=== PATIENT | female | born 1975 | race Caucasian/White ===

== ENCOUNTER → 2019-02-24 10:07 | Outpatient (POV) | payer BC, SELFPAY | PROVIDERS: Visit Provider Dermatology | DX: Z00.00 Encounter for general adult medical examination without abnormal findings (principal) ==

== ENCOUNTER 2020-04-07 14:30 | Outpatient (RCR) | payer BC, SELFPAY | END 2020-04-07 14:35 | disposition home or self-care (01) | LOC: PT 14:30 | PROVIDERS: PCP Physician Assistant; Visit Provider Orthopaedic Surgery | DX: M54.5 Low back pain (principal) | CPT/HCPCS: 20561; 97010; 97014; 97035; 97110; 97140; 97163; G0283 ==

== ENCOUNTER → 2020-10-26 10:25 | Outpatient (CLI) | payer BC, SELFPAY ==
--- NOTE | 2020-10-26 10:30 | XR_ITS ---
PROCEDURE: XR THORACIC SPINE 3V Referring Doctor: Katy Oliver Patient Age:45Y CLINICAL INDICATION: Thoracic pain Chronic thoracic back pain COMPARISON: CT ABDPELW/O CT ABD PELVIS W/O CONTRAST from 08/20/2015 CR CXR CHEST(2 VIEWS-NOT PORTABLE) from 03/24/2017 FINDINGS: . Thoracic spine3 view: AP, lateral, and swimmer's view Mild Degenerative changes of the T-spine and lower cervical spine with no acute findings... No compression fractures. Of. No destructive or expansile lesions. The pedicles are intact. There is slight disc space narrowing and marginal osteophyte formation at mid T-spine most evident, most notable at T6/7 and T7/8 less; evident T8-9 and T 5/6 but this appearance is unchanged however since 2017 chest film I would note of a very gradual mild levocurvature at the spine which becomes slightly more evident at the upper most lumbar spine. The posterior ribs appear intact. Unremarkable. I would also note there are degenerative changes at the lower C-spine with some anterior marginal osteophyte formation and likely scant cervical spondylosis C5/6-and C6/7. Disc spaces are fairly well maintained however at these levels IMPRESSION: No acute findings at thoracic spine. No appreciable change since 2017 CXR No lesions. No compression fractures Mild degenerative changes at the thoracic spine as of above in text Dictated by: Eric Gilmore MD 10/26/2020 14:08 Eric Gilmore MD in [place] 10/26/2020 14:08
--- NOTE | 2020-10-26 10:30 | XR_ITS ---
PROCEDURE: XR CHEST 2V Referring Doctor: Benito Mcculloch Patient Age:45Y CLINICAL HISTORY: Pain with inspiration 1 week COMPARISON: CR CXR CHEST(2 VIEWS-NOT PORTABLE) from 03/24/2017 CR XR CHEST 2V from 09/25/2019 FINDINGS: PA and lateral upright CXR performed today The cardiomediastinal silhouette and pulmonary vascularity are within normal limits. The lungs are well expanded and clear without infiltrates, suspicious nodules, or pleural effusions. No pneumothorax. Chest wall unremarkable. T-spine intact with stable mild degenerative changes No acute bony abnormalities. IMPRESSION: Stable chest with nothing acute. Dictated by: Eric Gilmore MD 10/26/2020 13:57 Eric Gilmore MD in [place] 10/26/2020 13:57
== END ==
LOC: RAD 10:27
PROVIDERS: PCP Physician Assistant; Visit Provider Physician Assistant
DX: R07.9 Chest pain, unspecified (principal); R07.1 Chest pain on breathing; M54.6 Pain in thoracic spine
CPT/HCPCS: 71046; 72072

== ENCOUNTER 2021-07-03 10:50 | Emergency (ER) | payer BC, SELFPAY ==
--- NOTE | 2021-07-03 10:55 | XR_ITS ---
PROCEDURE: XR CHEST 2V CLINICAL HISTORY: covid positive cough COMPARISON: CR CXR CHEST(2 VIEWS-NOT PORTABLE) from 03/24/2017 CR XR CHEST 2V from 09/25/2019 CR XR CHEST 2V from 10/26/2020 FINDINGS: The cardiomediastinal silhouette and pulmonary vascularity are within normal limits. The lungs are clear without infiltrates, suspicious nodules, or pleural effusions. There are degenerative changes in the thoracic spine with mild kyphosis IMPRESSION: No acute findings. Dictated by: Jewel Paredes MD 07/03/2021 11:55 Jewel Paredes MD in [place] 07/03/2021 11:55
[2021-07-03 11:40] VITALS: BP 134/87; PULSE 89; RESP 18; TEMP 37.1; O2SAT 98; BMI 31.1
--- NOTE | 2021-07-03 12:10 | HMH.EDUTC ---
[facility] [place] Disposition Clinical Impression: COVID-19, Bronchitis Disposition: Home, Self-Care Condition on Discharge: Good Instructions: DI for COVID-19 (Suspected or Confirmed ), Preventing the Spread of Coronavirus Discharge Instructions Additional Instructions: Drink plenty of fluids. Take tylenol or ibuprofen for pain or fever. Take the medications as directed. Follow up with your regular doctor. GO TO THE ER FOR ANY WORSENING SYMPTOMS The cough medication (promethazine dm) will make you drowsy, so don't drive or operate heavy machinery after taking it. Prescriptions: Albuterol Sulfate [Albuterol Sulfate Hfa] 2 puffs IH Q6HP PRN 30 Days #1 each PRN Reason: Shortness Of Breath Transmission Status: Received by [id number] Promethazine/Dextromethorphan [Promethazine-Dm Syrup] 5 ml PO Q6HP PRN #240 ml PRN Reason: Cough Transmission Status: Received by [id number] methylPREDNISolone [Medrol] 4 mg PO DIRECTED 6 Days #21 packet Transmission Status: Received by [id number] Referrals: Yaya Gilbert MD [Primary Care Provider] - Time of Disposition: 12:24 Medical Decision Making - Medical Records Medical records reviewed: No: I reviewed the patient's medical records. - Bernardo Inquiry Pt receiving controlled substance: No Vital Signs: 07/03/21 11:40 07/03/21 12:29 Temperature 98.7 F 98.7 F Temperature Source Oral Pulse Rate 89 Pulse Rate [Left Brachial] 89 Respiratory Rate 18 18 Blood Pressure 134/87 Blood Pressure [Left Arm] 134/87 Blood Pressure Mean [Left Arm] 102 Blood Pressure Source [Left Arm] Automatic Cuff Blood Pressure Position [Left Arm] Sitting 02 Sat by Pulse Oximetry 98 Oxygen Delivery Method Room Air - Radiology Data #1 Image(s): Chest Image Reviewed: Yes I reviewed the patient's radiology image, Yes I have reviewed radiologist's interpretation Preliminary Findings: Normal/NAD, No Infiltrates Seen PROCEDURE: XR CHEST 2V CLINICAL HISTORY: covid positive cough COMPARISON: CR CXR CHEST(2 VIEWS-NOT PORTABLE) from 03/24/2017 CR XR CHEST 2V from 09/25/2019 CR XR CHEST 2V from 10/26/2020 FINDINGS: The cardiomediastinal silhouette and pulmonary vascularity are within normal limits. The lungs are clear without infiltrates, suspicious nodules, or pleural effusions. There are degenerative changes in the thoracic spine with mild kyphosis IMPRESSION: No acute findings. Dictated by: Jewel Paredes MD 07/03/2021 11:55 Jewel Paredes MD in [place] 07/03/2021 11:55 [facility] [place] HPI - General Stated complaint: cough, weakness, body aches, loss of taste, fever Time Seen by Provider: 07/03/21 12:10 Mode of Arrival: Ambulatory Source of Information: Patient Limitations: No Limitations Description of Symptoms (Recalled from Triage Doc. by RN): PATIENT IS COVID POSITIVE; C/O COUGH, SOA AND FEVER. WANTS TO BE CHECKED FOR PNEUMONIA HEENT Symptoms (Recalled from RN notes): No Resp Symptoms (Recalled from RN notes): Yes Skin Symptoms (Recalled from RN notes): No MS Symptoms (Recalled from RN notes): No Functional Status (Recalled from RN notes): WNL - History of Present Illness Provider Complaint: She began feeling bad a little over 1 week ago. She tested positive for covid-19 (test done by her work[employer]) last Saturday (06/26). Since then she has ran a fever off and on up to 101. She has been coughing. She is here to be checked for pneumonia from where she has continued to cough and run the fever. She also had pleuritic type chest and upper back pain. She denies shortness of breath. - Related Data Home Medications Medication Instructions Recorded Confirmed omeprazole 40 mg capsule,delayed 40 mg PO QDAY 10/16/17 07/03/21 release Venlafaxine HCl [Effexor XR 75mg 75 mg PO DAILY 03/29/19 07/03/21 capsule] Previous Rx's Medication Instructions Recorded Albuterol Sulfate [Albuterol 2 puffs IH Q6HP PRN 30 Da
[2021-07-03 12:29] VITALS: BP 134/87; PULSE 89; RESP 18; TEMP 37.1; O2SAT 98
== END 2021-07-03 12:35 | disposition home or self-care (01) ==
PROVIDERS: Emergency Provider Nurse Practitioner Family; PCP Emergency Medicine
DX: U07.1 COVID-19 (principal); J20.9 Acute bronchitis, unspecified; K21.9 Gastro-esophageal reflux disease without esophagitis
CPT/HCPCS: 71046; 99202; G0463

== ENCOUNTER 2021-07-06 09:57 | Outpatient (CLI) | payer BC, SELFPAY ==
[2021-07-06] VITALS (9 sets, daily range): BP systolic 112–135; BP diastolic 67–84; PULSE 65–79; RESP 16–20; TEMP 36.7–36.9; O2SAT 94–98; BMI 32.0
== END 2021-07-06 12:25 | disposition home or self-care (01) ==
LOC: INF 09:58
PROVIDERS: PCP Emergency Medicine; Visit Provider Emergency Medicine
DX: U07.1 COVID-19 (principal); Z23 Encounter for immunization
CPT/HCPCS: 96365

== ENCOUNTER → 2021-10-19 12:17 | Outpatient (CLI) | payer BC, SELFPAY | PROVIDERS: Visit Provider Nurse Practitioner | DX: Z20.822 Contact with and (suspected) exposure to COVID-19 (principal) | CPT/HCPCS: C9803; U0003; U0005 ==

== ENCOUNTER 2021-10-21 10:47 | Emergency (ER) | payer BC, SELFPAY ==
[2021-10-21 12:06] VITALS: BP 148/78; PULSE 101; RESP 18; TEMP 37; O2SAT 98; BMI 32.0
--- NOTE | 2021-10-21 12:13 | HMH.EDUTC ---
[facility] [place] Clinical Impression: Close exposure to COVID-19 virus, Upper respiratory infection, viral Disposition: Home, Self-Care Condition on Discharge: Good Instructions: DI for COVID-19 (Suspected or Confirmed ) Additional Instructions: covid swab was sent to lab, call tomorrow for results. self isolate until test results are known to be negative No sign of a bacterial infection. Likely viral. Viruses can take 7-14 days to run their course. Nasal saline and bulb syringe or nose Amy to remove nasal drainage to help with nasal congestion. Hard to eat, drink, sleep with nasal congestion so important to keep this cleaned out. Monitor temp. Tylenol or Motrin as needed for pain or fever Encourage fluids, water, Gatorade, Powerade, Pedialyte if /toddler/child Warm salt water gargles Warm fluids Sore throat lozenges Sleep elevated Humidifier/vaporizer Follow-up immediately for new or worsening symptoms or no noticeable improvement over the next 48-72 hours. Prescriptions: predniSONE [Prednisone 20mg Tab] 20 mg PO BID #10 tab Transmission Status: Pending to [id number] Referrals: Katy Oliver PA [Primary Care Provider] - Time of Disposition: 12:20 Medical Decision Making - Bernardo Inquiry Pt receiving controlled substance: No Vital Signs: 10/21/21 12:06 Temperature 98.6 F Temperature Source Oral Pulse Rate [Left] 101 H Respiratory Rate 18 Blood Pressure [Right Arm] 148/78 H Blood Pressure Mean [Right Arm] 101 02 Sat by Pulse Oximetry 98 Orders (Tests/Meds): ORDERS Category Date Time Status Covid-19 Nasal PCR ([facility]) Routine Lab 10/21/21 12:06 Ordered [facility] [place] HPI - General Chief complaint: [facility]gent [facility] Stated complaint: covid test, symptoms Time Seen by Provider: 10/21/21 12:13 Mode of Arrival: Ambulatory Source of Information: Patient Limitations: No Limitations Description of Symptoms (Recalled from Triage Doc. by RN): pt c/o a cough, congestion, sore throat and lower back pain. daughter and are positive for covid. HEENT Symptoms (Recalled from RN notes): Yes (congestion and sore throat) Resp Symptoms (Recalled from RN notes): Yes (cough) Skin Symptoms (Recalled from RN notes): No MS Symptoms (Recalled from RN notes): Yes (lower back pain) Functional Status (Recalled from RN notes): wnl - History of Present Illness Provider Complaint: 46 yr old female c/o a cough, congestion, sore throat and lower back pain. daughter and are positive for covid. - Related Data Home Medications Medication Instructions Recorded Confirmed omeprazole 40 mg capsule,delayed 40 mg PO QDAY 10/16/17 07/03/21 release Venlafaxine HCl [Effexor XR 75mg 75 mg PO DAILY 03/29/19 07/03/21 capsule] Previous Rx's Medication Instructions Recorded Albuterol Sulfate [Albuterol 2 puffs IH Q6HP PRN 30 Days #1 each 07/03/21 Sulfate Hfa] Promethazine/Dextromethorphan 5 ml PO Q6HP PRN #240 ml 07/03/21 [Promethazine-Dm Syrup] methylPREDNISolone [Medrol] 4 mg PO DIRECTED 6 Days #21 07/03/21 packet predniSONE [Prednisone 20mg 20 mg PO BID #10 tab 10/21/21 Tab] Allergies Allergy/AdvReac Type Severity Reaction Status Date / Time No Known Allergies Allergy Verified 10/26/20 09:48 - Worker's Comp Is this a Worker's Comp case?: No [facility] History - Hepatitis A Screen Drug use history?: No High risk sexual behaviors?: No History of sexually transmitted infection?: No Currently employed?: No Childcare worker?: No Do you have indoor plumbing?: Yes Do you have electricity?: Yes Attestation statement:: This patient has been screened for Hepatitis A risk factors. I have reviewed the patient's past medical history: Yes Medical History: Reports:: Depression, Gastroesophageal Reflux Disease(GERD) Denies:: Diabetes Mellitus Type 1, Diabetes Mellitus Type 2, Internal Pacemaker, Lung Disease, Seizures Other Surgeries: Yes: Cholecy
[2021-10-21 12:40] VITALS: BP 148/78; PULSE 101; RESP 18; TEMP 37
[2021-10-21 13:13] LABS: Apearance,Urine Clear (Clear); Bilirubin,Urine Negative (Negative); Blood, Urine Negative (Negative); Color,Urine Yellow (Yellow); Glucose,Urine (UA) Negative (Negative); Ketones,Urine Negative (Negative); Protein,Urine Negative (Negative); Specific Gravity, Urine 1.025 (1.005-1.030); UTC Leukocyte Esterase,Urine Negative (Negative); UTC Nitrate,Urine Negative (Negative); Urobilinogen,Urine 0.2 EU/dl (0.2)
== END 2021-10-21 12:49 | disposition home or self-care (01) ==
PROVIDERS: Emergency Provider Nurse Practitioner Family; PCP Physician Assistant
DX: U07.1 COVID-19 (principal); J06.9 Acute upper respiratory infection, unspecified; K21.9 Gastro-esophageal reflux disease without esophagitis; F33.1 Major depressive disorder, recurrent, moderate; Z79.899 Other long term (current) drug therapy
CPT/HCPCS: 81003; 99203; C9803; G0463; U0003; U0005

== ENCOUNTER → 2021-11-28 16:00 | Outpatient (CLI) | payer BC, SELFPAY ==
[2021-11-28 19:28] LABS: Basophils # 0.2 K/mm3 (0-0.2); Basophils % 1.9 % (0.1-2.0); Eosinophils # 0.1 K/mm3 (0.0-0.4); Eosinophils % 1.8 % (0.1-12.0); Hematocrit 39.7 % (37.0-47.0); Hemoglobin 12.9 g/dL (12.2-16.2); Lymphocytes # 2.6 K/mm3 (0.7-4.5); Lymphocytes % 33.7 % (10-50); Mean Corpuscular HGB Conc 32.4 g/dL (31.8-35.4); Mean Corpuscular Hemoglobin 29.8 pg (27.0-31.2); Mean Corpuscular Volume 92.2 fl (81-99); Mean Platelet Volume 8.9 fl (7.4-10.4); Monocytes # 0.3 K/mm3 (0.1-1.0); Monocytes % 4.4 % (1.7-9.3); Neutrophils # 4.4 K/mm3 (1.8-7.8); Neutrophils % 58.2 % (37.0-80.0); Platelet Count 315 K/mm3 (142-424); Red Blood Count 4.31 M/mm3 (4.20-5.40); White Blood Count 7.6 K/mm3 (4.8-10.8)
[2021-11-28 19:50] LABS: Alanine Aminotransferase 17 U/L (12-78); Albumin Level 4.7 g/dl (3.5-5.0); Albumin/Globulin Ratio 1.7 (1.1-1.8); Alkaline Phosphatase 55 U/L (38-126); Anion Gap 13.1 mEq/L (5-15); Aspartate Amino Transferase 21 U/L (14-36); Bilirubin,Total 0.3 mg/dl (0.2-1.3); Blood Urea Nitrogen 14 mg/dl (7-17); Carbon Dioxide 30 mmol/L (22.0-30.0); Chloride 100 mmol/L (98-107); Chol/HDL Ratio 3.6 (1-3.5); Cholesterol 226 mg/dl (140-200); Estimated Glomerular Filt Rate 91 ml/min (>60); GFR (African American) 110 ML/MIN (>60); Globulin 2.8 g/dL (1.3-3.2); Glucose 88 mg/dl (74-100); HDL Cholesterol 62 mg/dl (40-60); Potassium 4.1 mmoL/L (3.5-5.1); Sodium 139 mmol/L (136-145); Total Protein,Serum 7.5 g/dl (6.3-8.2); Triglycerides 80 mg/dl (30-150); VLDL Cholesterol 16 mg/dL (0-40)
[2021-11-28 20:02] LABS: Direct LDL Cholesterol 123.55 mg/dL (100-129)
[2021-11-28 20:08] LABS: 25-OH Vitamin D, Total 36.9 ng/mL (30-100)
[2021-11-28 20:22] LABS: Thyroid Stimulating Hormone 2.69 uIU/mL (0.465-4.68)
== END ==
PROVIDERS: Visit Provider Physician Assistant
DX: I10 Essential (primary) hypertension (principal); E66.9 Obesity, unspecified; Z68.35 Body mass index [BMI] 35.0-35.9, adult
CPT/HCPCS: 80053; 80061; 82306; 84443; 85025

== ENCOUNTER → 2023-04-22 16:18 | Outpatient (CLI) | payer BC, SELFPAY ==
[2023-04-22 14:01] LABS: Basophils % 0.5 % (0.1-2.0); Eosinophils # 0.1 K/mm3 (0.0-0.4); Eosinophils % 1.8 % (0.1-12.0); Hematocrit 36.7 % (37.0-47.0); Hemoglobin 11.6 g/dL (12.2-16.2); Lymphocytes % 32.3 % (10-50); Mean Corpuscular HGB Conc 31.6 g/dL (31.8-35.4); Mean Corpuscular Hemoglobin 27.7 pg (27.0-31.2); Mean Corpuscular Volume 87.5 fl (81-99); Mean Platelet Volume 9.5 fl (7.4-10.4); Monocytes # 0.3 K/mm3 (0.1-1.0); Monocytes % 5.4 % (1.7-9.3); Neutrophils # 3.6 K/mm3 (1.8-7.8); Neutrophils % 60.1 % (37.0-80.0); Platelet Count 325 K/mm3 (142-424); Red Blood Count 4.19 M/mm3 (4.20-5.40); Red Cell Distribution Width 13.9 % (11.5-17.5); White Blood Count 6.1 K/mm3 (4.8-10.8)
[2023-04-22 14:27] LABS: Alanine Aminotransferase 26 U/L (12-78); Albumin Level 4.3 g/dl (3.5-5.0); Albumin/Globulin Ratio 1.6 (1.1-1.8); Alkaline Phosphatase 64 U/L (38-126); Anion Gap 11.2 mEq/L (5-15); Aspartate Amino Transferase 24 U/L (14-36); Bilirubin,Total 0.2 mg/dl (0.2-1.3); Blood Urea Nitrogen 10 mg/dl (7-17); Calcium 9.3 mg/dl (8.4-10.2); Carbon Dioxide 23 mmol/L (22.0-30.0); Chloride 108 mmol/L (98-107); Chol/HDL Ratio 3.5 (1-3.5); Cholesterol 219 mg/dl (140-200); Estimated Glomerular Filt Rate 90 ml/min (>60); GFR (African American) 109 ML/MIN (>60); Globulin 2.7 g/dL (1.3-3.2); Glucose 119 mg/dl (74-100); HDL Cholesterol 62 mg/dl (40-60); Potassium 4.2 mmoL/L (3.5-5.1); Sodium 138 mmol/L (136-145); Triglycerides 101 mg/dl (30-150); VLDL Cholesterol 20 mg/dL (0-40)
[2023-04-22 14:39] LABS: Direct LDL Cholesterol 128.57 mg/dL (100-129)
[2023-04-22 14:45] LABS: 25-OH Vitamin D, Total 38.2 ng/mL (30-100)
[2023-04-22 14:57] LABS: Thyroid Stimulating Hormone 2.35 uIU/mL (0.465-4.68)
[2023-04-23 09:09] LABS: Iron 52 ug/dL (37-170)
[2023-04-23 09:19] LABS: Total Iron Binding Capacity 384 ug/dL (265-497)
[2023-04-23 14:18] LABS: Hemoglobin A1C 5.3 % (4.0-6.0)
[2023-04-24 12:09] LABS: FSH 15.8 mIU/mL (.); LH 16.1 mIU/mL (.); Progesterone 3.5 ng/mL (.); Testosterone,Total 8 ng/dL (4-50)
[2023-04-30 18:51] LABS: Estrogen 151 pg/mL (.)
== END ==
PROVIDERS: PCP Physician Assistant; Visit Provider Physician Assistant
DX: R63.5 Abnormal weight gain (principal); R73.09 Other abnormal glucose; D64.9 Anemia, unspecified; R51.9 Headache, unspecified; R61 Generalized hyperhidrosis; E66.9 Obesity, unspecified; Z68.37 Body mass index [BMI] 37.0-37.9, adult; Z79.899 Other long term (current) drug therapy
CPT/HCPCS: 80053; 80061; 82306; 82672; 83001; 83002; 83036; 83540; 83550; 84144; 84403; 84443; 85025

== ENCOUNTER → 2023-05-03 15:47 | Outpatient (CLI) | payer BC, SELFPAY ==
--- NOTE | 2023-05-03 15:48 | MR_ITS ---
PROCEDURE INFORMATION: Exam: MR Head Without Contrast Exam date and time: 05/03/2023 3:46 PM Age: 47 years old Clinical indication: Pain; Headache; Migraine; Additional info: Sharp stabbing headaches TECHNIQUE: Imaging protocol: Magnetic resonance imaging of the head without contrast. COMPARISON: No relevant prior studies available. FINDINGS: Major vascular flow voids at the skull base are preserved. No extra-axial fluid collection. No hydrocephalus. No midline shift or significant intracranial mass effect. Minimal nonspecific white matter gliosis, probable chronic microvascular ischemia. No cerebral edema. No diffusion restriction. Minimal paranasal sinus disease. No significant mastoid effusion. IMPRESSION: No acute intracranial abnormality.
--- NOTE | 2023-05-03 15:48 | MR_ITS ---
PROCEDURE INFORMATION: Exam: MRA Head Without Contrast; Arteriography Exam date and time: 05/03/2023 3:46 PM Age: 47 years old Clinical indication: Pain; Headache; Additional info: Sharp stabbing headaches TECHNIQUE: Imaging protocol: Magnetic resonance angiography head without contrast. Ndoj-tw-snoclh (TOF) technique was utilized for this exam. Exam focused on the arteries. COMPARISON: No relevant prior studies available. FINDINGS: ANTERIOR CIRCULATION: Right internal carotid artery: Intracranial segment is patent with no significant stenosis. No aneurysm. Right middle cerebral artery: No occlusion or significant stenosis. No aneurysm. Right anterior cerebral artery: No occlusion or significant stenosis. No aneurysm. Left internal carotid artery: Intracranial segment is patent with no significant stenosis. No aneurysm. Left middle cerebral artery: No occlusion or significant stenosis. No aneurysm. Left anterior cerebral artery: No occlusion or significant stenosis. No aneurysm. POSTERIOR CIRCULATION: Right vertebral artery: No occlusion or significant stenosis. No aneurysm. Left vertebral artery: No occlusion or significant stenosis. No aneurysm. Basilar artery: No occlusion or significant stenosis. No aneurysm. Right posterior cerebral artery: origin of the right posterior cerebral artery. Left posterior cerebral artery: No occlusion or significant stenosis. No aneurysm. IMPRESSION: Unremarkable MRA of the intracranial circulation.
== END ==
PROVIDERS: PCP Physician Assistant; Visit Provider Physician Assistant
DX: R51.9 Headache, unspecified (principal)
CPT/HCPCS: 70544; 70551

== ENCOUNTER 2024-04-21 14:30 | Emergency (ER) | payer BC, SELFPAY ==
[2024-04-21 14:45] VITALS: BP 146/101; PULSE 83; RESP 20; TEMP 37.4; O2SAT 98; BMI 36.6
--- NOTE | 2024-04-21 14:53 | EXP.UTC ---
Discharge Plan Disposition Patient Disposition: Home, Self-Care Condition: Good Prescriptions Prescriptions: New azithromycin [Zithromax] 250 mg tablet 250 mg PO UD DOSE PK Qty: 6 0RF Rx Instructions: Take two (2) tablets today, then one (1) tablet days #2 thru #5 benzonatate 100 mg capsule 100 mg PO TIDP PRN (Reason: Cough) Qty: 30 0RF methylprednisolone 4 mg Tablets,Dose Pack 4 mg PO DIRECTED 6 Days Qty: 21 0RF Rx Instructions: Take 1 pack as directed for 6 days guaifenesin [Mucinex] 600 mg tablet extended release 12hr 600 - 1,200 mg PO BIDP PRN (Reason: Congestion) Qty: 30 0RF No Action omeprazole 20 mg capsule,delayed release(DR/EC) 20 mg PO DAILY Wegovy 0.5 mg/0.5 mL pen injector 0.5 mg SQ WEEKLY Qty: 2 0RF Rx Instructions: administer weeks 5 through 8 of therapy Zepbound 2.5 mg/0.5 mL pen injector See Rx Instructions .ROUTE .COMPLEX Qty: 4 0RF Dose Instruction: INJECT 2.5 MG SUBCUTANEOUSLY ONCE A WEEK FOR 4 WEEKS Rx Instructions: INJECT 2.5 MG SUBCUTANEOUSLY ONCE A WEEK FOR 4 WEEKS Zepbound 5 mg/0.5 mL pen injector 5 mg SQ WEEKLY Qty: 2 2RF nebivolol 2.5 mg tablet See Rx Instructions .ROUTE .COMPLEX Qty: 90 0RF Dose Instruction: Take 1 tablet by mouth once daily Rx Instructions: Take 1 tablet by mouth once daily venlafaxine 75 mg capsule,extended release 24hr See Rx Instructions .ROUTE .COMPLEX Qty: 90 0RF Dose Instruction: TAKE 1 CAPSULE BY MOUTH ONCE DAILY FOR DEPRESSION Rx Instructions: TAKE 1 CAPSULE BY MOUTH ONCE DAILY FOR DEPRESSION Referrals Follow up/Referrals: Katy Oliver PA [Primary Care Provider] - See instructions Activity Restrictions/Add. Instructions Additional Instructions/Restrictions: Drink plenty of fluids. Take tylenol or ibuprofen for pain or fever. Take the medications as directed. Follow up with your regular doctor. GO TO THE ER FOR ANY WORSENING SYMPTOMS Clinical Impressions Clinical Impression: Acute bronchitis, Acute sinusitis Instructions Patient Instructions: DI for Sinusitis, DI for Acute Bronchitis Discharge ED Provider: Montana Ferreira [facility] General Stated complaint: head congestion ear pain Time Seen by Provider: 04/21/24 14:52 History of Present Illness Provider Complaint: She states that for the past 2 days she has had worsening sinus congestion, chest congestion, productive cough, chilling, and malaise. She had a negative covid-19 test this morning. She denies shortness of breath. Related Data Home Medications Medication Instructions Recorded Confirmed omeprazole 20 mg capsule,delayed 20 mg PO DAILY 11/28/21 04/22/23 release Previous Rx's Medication Instructions Recorded semaglutide (weight loss) 0.5 0.5 mg (0.5 mL) SQ WEEKLY #2 mL 06/24/23 mg/0.5 mL subcutaneous pen injector (Wegovy) tirzepatide (weight loss) 2.5 See Rx Instructions .Route 11/25/23 mg/0.5 mL subcutaneous pen .COMPLEX #4 mL injector (Zepbound) tirzepatide (weight loss) 5 mg/0.5 5 mg (0.5 mL) SQ WEEKLY #2 mL 12/23/23 mL subcutaneous pen injector (Zepbound) nebivolol 2.5 mg tablet See Rx Instructions .Route 02/18/24 .COMPLEX #90 tabs venlafaxine 75 mg capsule,extended See Rx Instructions .Route 02/18/24 release 24 hr .COMPLEX #90 caps azithromycin 250 mg tablet 250 mg PO UD DOSE PK #6 tabs 04/21/24 (Zithromax) benzonatate 100 mg capsule 100 mg PO TIDP PRN Cough #30 caps 04/21/24 guaifenesin 600 mg tablet, 600 - 1,200 mg (1 - 2 x 600 mg) PO 04/21/24 extended release 12 hr (Mucinex) BIDP PRN Congestion #30 tabs methylprednisolone 4 mg tablets in 4 mg PO DIRECTED 6 days #21 tabs 04/21/24 a dose pack Allergies Allergy/AdvReac Type Severity Reaction Status Date / Time No Known Allergies Allergy Verified 04/22/23 11:07 [facility] Disclaimer: The information contained in this section may have been updated after the patient was seen, as this information can be updated by other users. Medical History (Updated 04/21/24 @ 15:12 by Montana Ferreira APRN) Depression Hypertension Social History Smoking Status: Never smoker alcohol intake: never substance use type: denies use current occupational status: employed Travel in the last 8 weeks: None caffeine: No ROS Obtained: Yes All systems reviewed & no additional complaints except as documented Constitutional Constitutional: Reports poor appetite Eyes Eyes: Reports system reviewed and no additional complaints, except as documented ENT Ears, Nose, Mouth, and Throat: Reports as per HPI Cardiovascular Cardiovascular: Reports system reviewed and no additional complaints, except as documented and Denies chest pain Respiratory Respiratory: Denies shortness of breath, Reports chest congestion, Reports cough, Denies stridor and Denies wheezing Gastrointestinal Gastrointestingal: Reports system reviewed and no additional complaints, except as documented; Denies abdominal pain, diarrhea or vomiting Musculoskeletal Musculoskeletal: Reports system reviewed and no additional complaints, except as documented and Denies arthralgias Integumentary/Breasts Skin/Breast: Reports system reviewed and no additional complaints, except as documented and Denies rash Neurologic Neurologic: Denies paresthesias Allergic/Immunologic Allergic/Immunologic: Denies wheezing Physical Exam General General appearance: alert and in no apparent distress Eye Eye exam: Present normal appearance, PERRL and EOMI ENT ENT exam: Present mucous membranes moist and normal external ear exam Expanded ENT Exam External ear exam: Present normal external inspection TM/Canal exam: Bilateral TM: erythema and bulging Nose exam: Absent sinus tenderness Nasal speculum exam: Bilateral: normal Mouth exam: Present normal external inspection; Absent drooling Teeth exam: Present normal inspection Throat exam: Present tonsillar erythema and tonsillomegaly Neck Neck exam: Present normal inspection, full ROM and trachea midline; Absent tenderness, lymphadenopathy or thyromegaly Chest Chest inspection: Present normal inspection and symmetric chest wall rise; Absent tenderness or rash Respiratory Respiratory exam: Present normal lung sounds bilaterally; Absent respiratory distress, wheezes, stridor or accessory muscle use Cardiovascular Cardiovascular exam: Present regular rate, normal rhythm and normal heart sounds Abdominal Exam Abdominal exam: Present soft; Absent distention, tenderness, guarding, rebound or rigidity Extremities Exam Extremities exam: Present normal inspection, full ROM and normal capillary refill; Absent tenderness or calf tenderness Back Exam Back exam: Present normal inspection and full ROM; Absent tenderness Neurological Exam Neurological exam: Present alert and oriented X3 Psychiatric Psychiatric exam: Present normal affect and normal mood Skin Skin exam: Present warm, dry, intact and normal color Lymphatic Lymphatic Findings: no adenopathy Medical Decision Making Medical Records Medical records reviewed: No I reviewed the patient's medical records. Bernardo Inquiry Pt receiving controlled substance: No Medical Decision Narrative: She refused a covid-19 test
[2024-04-21 15:01] LABS: UTC Strep Screen (Rapid) Negative (Negative)
[2024-04-21 15:10] VITALS: BP 146/101; PULSE 83; RESP 20; TEMP 37.4; O2SAT 98
== END 2024-04-21 15:13 | disposition home or self-care (01) ==
PROVIDERS: Emergency Provider Nurse Practitioner Family; PCP Physician Assistant
DX: J20.9 Acute bronchitis, unspecified (principal); J01.90 Acute sinusitis, unspecified
CPT/HCPCS: 87880; 99212; 99214; G0463

== ENCOUNTER 2024-05-12 14:45 | Outpatient (CLI) | payer BC, SELFPAY ==
[2024-05-12 15:08] LABS: Basophils # 0.1 K/mm3 (0-0.2); Basophils % 1.2 % (0.1-2.0); Eosinophils # 0.2 K/mm3 (0.0-0.4); Eosinophils % 2.2 % (0.1-12.0); Hematocrit 40.8 % (37.0-47.0); Lymphocytes # 2.6 K/mm3 (0.7-4.5); Lymphocytes % 34.7 % (10-50); Mean Corpuscular HGB Conc 31.9 g/dL (31.8-35.4); Mean Corpuscular Hemoglobin 29.4 pg (27.0-31.2); Mean Corpuscular Volume 92.2 fl (81-99); Mean Platelet Volume 8.5 fl (7.4-10.4); Monocytes # 0.3 K/mm3 (0.1-1.0); Neutrophils # 4.4 K/mm3 (1.8-7.8); Neutrophils % 57.9 % (37.0-80.0); Platelet Count 304 K/mm3 (142-424); Red Blood Count 4.43 M/mm3 (4.20-5.40); Red Cell Distribution Width 14.8 % (11.5-17.5); White Blood Count 7.6 K/mm3 (4.8-10.8)
[2024-05-12 15:22] LABS: Alanine Aminotransferase 22 U/L (12-78); Albumin Level 4.2 g/dl (3.5-5.0); Albumin/Globulin Ratio 1.4 (1.1-1.8); Alkaline Phosphatase 56 U/L (38-126); Anion Gap 9.2 mEq/L (5-15); Aspartate Amino Transferase 23 U/L (14-36); Bilirubin,Total 0.3 mg/dl (0.2-1.3); Blood Urea Nitrogen 9 mg/dl (7-17); Calcium 9.7 mg/dl (8.4-10.2); Carbon Dioxide 27 mmol/L (22.0-30.0); Chloride 104 mmol/L (98-107); Cholesterol 247 mg/dl (140-200); Estimated Glomerular Filt Rate 90 ml/min (>60); GFR (African American) 109 ML/MIN (>60); Globulin 3.1 g/dL (1.3-3.2); Glucose 120 mg/dl (74-100); HDL Cholesterol 62 mg/dl (40-60); Potassium 4.2 mmoL/L (3.5-5.1); Sodium 136 mmol/L (136-145); Total Protein,Serum 7.3 g/dl (6.3-8.2); Triglycerides 129 mg/dl (30-150); VLDL Cholesterol 26 mg/dL (0-40)
[2024-05-12 15:33] LABS: Direct LDL Cholesterol 136.28 mg/dL (100-129)
[2024-05-12 15:38] LABS: INR 0.93 (0.9-1.1); Prothrombin Time 10.5 seconds (10.1-12.5)
[2024-05-12 15:52] LABS: Thyroid Stimulating Hormone 2.93 uIU/mL (0.465-4.68)
[2024-05-12 19:09] LABS: 25-OH Vitamin D, Total 49.1 ng/mL (30-100)
[2024-05-14 17:11] LABS: Anti-Cardio Antibody IgM <9 MPL U/mL (0-12); Anti-Cardiolipin Antibody IgG <9 GPL U/mL (0-14); Anticardiolipin Ab,IgA,Qn <9 APL U/mL (0-11)
[2024-05-15 02:22] LABS: Protein C Functional 123 % (73-180); Protein S Functional 116 % (63-140)
[2024-05-18 14:10] LABS: APTT 25.7 sec (.); Anti-Cardiolipin Antibody IgG <10 GPL (.); Anti-Cardiolipin Antibody IgM <10 MPL (.); Beta-2 Glycoprotein I Ab, IgA <10 SAU (.); Beta-2 Glycoprotein I Ab, IgG <10 SGU (.); Beta-2 Glycoprotein I Ab, IgM <10 SMU (.); Hexagonal Phase Phospholipid 4 sec (.); Prothrombin Time 10.4 sec (.); Thrombin Time 16.2 sec (.)
[2024-05-26 16:15] LABS: Activated Protein C Resist 2.6
[2024-05-26 16:17] LABS: Anti-Cardiolipin Antibody IgG <10; Anti-Cardiolipin Antibody IgM <10; Beta-2 Glycoprotein I Ab, IgA <10; Beta-2 Glycoprotein I Ab, IgG <10; Beta-2 Glycoprotein I Ab, IgM <10
[2024-05-26 16:21] LABS: Homocyst(e)ine 7.4
[2024-05-26 16:22] LABS: Factor VIII Activity 77
[2024-05-26 16:23] LABS: Antithrombin Activity,Plasma 94
[2024-05-26 16:24] LABS: Protein C Activity 124; Protein S Antigen,Free 104
[2024-05-26 16:26] LABS: APTT 27.8
== END 2024-05-12 23:59 | disposition home or self-care (01) ==
LOC: LAB 14:45
PROVIDERS: PCP Physician Assistant; Visit Provider Physician Assistant
DX: H34.8312 Tributary (branch) retinal vein occlusion, right eye, stable (principal); I10 Essential (primary) hypertension; E66.9 Obesity, unspecified; Z68.37 Body mass index [BMI] 37.0-37.9, adult
CPT/HCPCS: 36415; 80050; 80053; 80061; 82306; 83090; 84443; 85025; 85240; 85300; 85302; 85303; 85306; 85307; 85597; 85598; 85610; 85613; 85670; 85730; 86146; 86147

== ENCOUNTER → 2024-06-09 11:43 | Outpatient (CLI) | payer BC, SELFPAY | LOC: SL 11:44 | PROVIDERS: PCP Physician Assistant; Visit Provider Physician Assistant | DX: G47.33 Obstructive sleep apnea (adult) (pediatric) (principal) | CPT/HCPCS: G0399 ==

== ENCOUNTER 2024-07-09 16:48 | Outpatient (CLI) | payer BC, SELFPAY ==
--- NOTE | 2024-07-09 16:52 | XR_ITS ---
PROCEDURE INFORMATION: Exam: XR Right Hand Exam date and time: 07/09/2024 4:53 PM Age: 48 years old Clinical indication: Pain; Hand; Right; Additional info: R 3rd digit pain TECHNIQUE: Imaging protocol: Radiologic exam of the right hand. Views: 1 or 2 views. COMPARISON: No relevant prior studies available. FINDINGS: Bones/joints: Osseous alignment is normal. No acute fracture. No significant arthritic change. Soft tissues: Normal. IMPRESSION: Negative right hand
== END 2024-07-09 23:59 | disposition home or self-care (01) ==
LOC: RAD 16:49
PROVIDERS: PCP Nurse Practitioner Family; Visit Provider Nurse Practitioner Family
DX: M79.644 Pain in right finger(s) (principal)
CPT/HCPCS: 73120

== ENCOUNTER 2024-09-18 09:30 | Outpatient (CLI) | payer BC, SELFPAY ==
[2024-09-18 18:08] LABS: Coronavirus 19, PCR Not Detected (NotDetected); Influenza A, PCR Not Detected (NotDetected); Influenza B, PCR Not Detected (NotDetected)
== END 2024-09-18 23:59 | disposition home or self-care (01) ==
LOC: LAB.DROPOF 09-21 10:20
PROVIDERS: PCP Family Medicine; Visit Provider Family Medicine
DX: R05.9 Cough, unspecified (principal); R09.81 Nasal congestion
CPT/HCPCS: 87636